=== PATIENT | male | born 1995 | race Caucasian/White ===

== ENCOUNTER 2021-02-13 12:47 | Emergency (ER) | payer OTHER ==
[2021-02-14] MEDS ORDERED: ZOFRAN4 MG PO (13:35)
[2021-02-14] MEDS ORDERED: BENTYL 10MG CAP10 MG PO (13:35)
== END 2021-02-13 15:20 | disposition left against medical advice (07) ==
LOC: ER1 12:47
DX: Z53.21 Procedure and treatment not carried out due to patient leaving prior to being seen by health care provider (principal)

== ENCOUNTER 2021-02-14 09:34 | Emergency (ER) | payer OTHER ==
[2021-02-14 11:12] LABS: HEMOGLOBIN 14.6 gm/dl (14.0-17.5); RED BLOOD COUNT 5.13 M/UL (4.20-5.50); WHITE BLOOD COUNT 5.9 K/UL (4.5-11.0)
[2021-02-14 11:28] LABS: BUN/CREATININE RATIO 9 (0-10)
[2021-02-14] MEDS ORDERED: ZOFRAN4 MG PO (13:35)
[2021-02-14] MEDS ORDERED: BENTYL 10MG CAP10 MG PO (13:35)
== END 2021-02-14 13:54 | disposition home or self-care (01) ==
LOC: ER1 09:34
PROVIDERS: Physician Assistant Medical
DX: R10.9 Unspecified abdominal pain (principal); R11.0 Nausea; K21.9 Gastro-esophageal reflux disease without esophagitis; F17.220 Nicotine dependence, chewing tobacco, uncomplicated
CPT/HCPCS: 74022; 80053; 81001; 83690; 85025; 85652; 86140; 99284

== ENCOUNTER 2021-02-24 16:05 | Emergency (ER) | payer OTHER ==
[~2021-02-24 16:05] MED LIST: BENTYL 10MG CAP10 MG PO; ZOFRAN4 MG PO
[2021-02-24] MEDS ORDERED: IBUPROFEN800 MG PO (18:24)
[2021-02-24] MEDS ORDERED: CYCLOBENZAPRINE10 MG PO (18:24)
== END 2021-02-24 18:33 | disposition home or self-care (01) ==
LOC: ER1 16:05
DX: S39.012A Strain of muscle, fascia and tendon of lower back, initial encounter (principal); Z90.49 Acquired absence of other specified parts of digestive tract; X50.0XXA Overexertion from strenuous movement or load, initial encounter
CPT/HCPCS: 72040; 72100; 99283

== ENCOUNTER 2021-04-08 13:32 | Emergency (ER) | payer OTHER ==
[~2021-04-08 13:32] MED LIST changes: +CYCLOBENZAPRINE10 MG PO; +IBUPROFEN800 MG PO
[2021-04-08 14:20] LABS: HEMOGLOBIN 14.9 gm/dl (14.0-17.5); RED BLOOD COUNT 5.15 M/UL (4.20-5.50); WHITE BLOOD COUNT 5.5 K/UL (4.5-11.0)
[2021-04-08 14:40] LABS: BUN/CREATININE RATIO 11 (0-10)
== END 2021-04-08 18:41 | disposition home or self-care (01) ==
LOC: ER1 13:32
PROVIDERS: Emergency Medicine
DX: R10.9 Unspecified abdominal pain (principal); R19.7 Diarrhea, unspecified
CPT/HCPCS: 80053; 81001; 82272; 83690; 85025; 85610; 85730; 96374; 96375; 99284; J2270; J2405; J7030; Q9967

== ENCOUNTER 2021-04-17 15:39 | Emergency (ER) | payer OTHER ==
[2021-04-17 16:36] LABS: RED BLOOD COUNT 5.22 M/UL (4.20-5.50); WHITE BLOOD COUNT 6.1 K/UL (4.5-11.0)
[2021-04-17 17:06] LABS: BUN/CREATININE RATIO 11 (0-10)
[2021-04-17] MEDS ORDERED: ZOFRAN4 MG PO (20:08)
[2021-04-17] MEDS ORDERED: IBUPROFEN600 MG PO (20:08)
== END 2021-04-17 20:20 | disposition home or self-care (01) ==
LOC: ER1 15:39
PROVIDERS: Physician Assistant Medical
DX: R06.02 Shortness of breath (principal); R53.83 Other fatigue; K21.9 Gastro-esophageal reflux disease without esophagitis; F17.220 Nicotine dependence, chewing tobacco, uncomplicated; Z20.822 Contact with and (suspected) exposure to COVID-19
CPT/HCPCS: 70450; 71045; 80053; 81001; 85025; 99285; U0002

== ENCOUNTER 2021-09-11 15:08 | Emergency (ER) | payer MEDICAID ==
[~2021-09-11 15:08] MED LIST changes: +IBUPROFEN600 MG PO
[2021-09-11 16:45] LABS: HEMOGLOBIN 14.6 gm/dl (14.0-17.5); RED BLOOD COUNT 5.04 M/UL (4.20-5.50)
[2021-09-11 17:02] LABS: BUN/CREATININE RATIO 9 (0-10)
== END 2021-09-11 19:05 | disposition home or self-care (01) ==
LOC: ER1 15:08
PROVIDERS: Student in an Organized Health Care Education/Training Program
DX: R09.1 Pleurisy (principal); R07.89 Other chest pain
CPT/HCPCS: 71045; 80053; 82550; 82553; 83874; 84484; 85025; 85379; 93005; 96374; 99285; J1885

== ENCOUNTER 2022-03-17 13:15 | Emergency (ER) | payer OTHER ==
[2022-03-17 14:09] LABS: HEMOGLOBIN 13.9 gm/dl (14.0-17.5); RED BLOOD COUNT 4.82 M/UL (4.20-5.50); WHITE BLOOD COUNT 5.2 K/UL (4.5-11.0)
[2022-03-17 14:34] LABS: BUN/CREATININE RATIO 15 (0-10)
== END 2022-03-17 15:16 | disposition home or self-care (01) ==
LOC: ER1 13:15
PROVIDERS: Physician Assistant
DX: R10.9 Unspecified abdominal pain (principal)
CPT/HCPCS: 80053; 81001; 85025; 96374; 99284; J1885

== ENCOUNTER 2022-04-27 12:36 | Emergency (ER) | payer OTHER, MEDICAID ==
[2022-04-27 13:53] LABS: HEMOGLOBIN 13.4 gm/dl (14.0-17.5); RED BLOOD COUNT 4.69 M/UL (4.20-5.50); WHITE BLOOD COUNT 4.4 K/UL (4.5-11.0)
[2022-04-27 14:04] LABS: BUN/CREATININE RATIO 10 (0-10)
[2022-04-27] MEDS ORDERED: ZANAFLEX4 M1 PO (16:06)
== END 2022-04-27 16:25 | disposition home or self-care (01) ==
LOC: ER1 12:36
PROVIDERS: Physician Assistant
DX: S39.012A Strain of muscle, fascia and tendon of lower back, initial encounter (principal); S16.1XXA Strain of muscle, fascia and tendon at neck level, initial encounter; V59.59XA Passenger in pick-up truck or van injured in collision with other motor vehicles in traffic accident, initial encounter; Y92.410 Unspecified street and highway as the place of occurrence of the external cause
CPT/HCPCS: 70450; 71260; 72125; 80053; 85025; 99284; Q9967

== ENCOUNTER 2022-06-30 16:58 | Emergency (ER) | payer OTHER ==
[~2022-06-30 16:58] MED LIST changes: +ZANAFLEX4 M1 PO
[2022-06-30 20:57] LABS: HEMOGLOBIN 14.7 gm/dl (14.0-17.5); RED BLOOD COUNT 5.12 M/UL (4.20-5.50); WHITE BLOOD COUNT 7.4 K/UL (4.5-11.0)
[2022-06-30 21:24] LABS: BUN/CREATININE RATIO 12 (0-10)
[2022-06-30] MEDS ORDERED: ZOFRAN 4 MG TAB4 MG PO (22:38)
[2022-06-30] MEDS ORDERED: IBUPROFEN600 MG PO (22:38)
== END 2022-06-30 22:57 | disposition home or self-care (01) ==
LOC: ER1 16:58
PROVIDERS: Physician Assistant Medical
DX: U07.1 COVID-19 (principal)
CPT/HCPCS: 71045; 80053; 81001; 82550; 82553; 84484; 85025; 93005; 96361; 96374; 96375; 99284; J1885; J2405; U0002